=== PATIENT | female | born 1990 | race Caucasian/White ===

== ENCOUNTER 2020-11-23 00:03 | Emergency (ER) | payer OTHER ==
[~2020-11-23 00:03] MED LIST: BRINTELLIX20 MG PO; CLEOCIN300 MG PO; ENERGY PO; ONDANSETRON ODT4 MG SL; PERCOCET 5-3251 EACH PO; PERCOCET 7.5/321 TAB PO; REXULTI3 MG PO; TRAZODONE 100M100 MG PO; ZOFRAN4 MG PO
[2020-11-23 03:08] LABS: BASOPHIL 0.5 % (0-2); EOSINOPHIL 2.3 % (0-5); HCT 39.4 % (37.0-47.0); HGB 13.4 g/dl (12.5-16.0); MCH 30.2 pg (25.0-31.0); MCV 88.9 fL (78.0-100.0); MONOCYTE 6.7 % (0-12); MPV 9.7 fL (6.0-9.5); NRBC 0; PLT 242 K/uL (150-400); RBC 4.43 M/uL (4.20-5.40); WBC 10.1 K/uL (4.0-10.5)
[2020-11-23 03:19] LABS: BUN/CREAT RATIO (CALC) 10.3 RATIO; CREATININE 0.87 mg/dL (0.51-0.95); POTASSIUM 4.2 mmol/L (3.5-5.1)
[2020-11-23] MEDS ORDERED: ROBAXIN750 MG PO (05:50)
[2020-11-23] MEDS ORDERED: MEDROL 4MG DOSEP4 MG PO (05:50)
[2020-11-23] MEDS ORDERED: MOBIC7.5 MG PO (05:50)
== END 2020-11-23 06:27 | disposition home or self-care (01) ==
LOC: FER 00:03
PROVIDERS: Emergency Medicine Emergency Medical Services
DX: M54.12 Radiculopathy, cervical region (principal); J45.909 Unspecified asthma, uncomplicated; Z88.0 Allergy status to penicillin; Z88.1 Allergy status to other antibiotic agents
CPT/HCPCS: 36415; 72125; 80048; 85025; J1100; J1170; J1885; J2405; J3360

== ENCOUNTER 2020-12-02 13:54 | Emergency (ER) | payer OTHER ==
[~2020-12-02 13:54] MED LIST changes: +MEDROL 4MG DOSEP4 MG PO; +MOBIC7.5 MG PO; +ROBAXIN750 MG PO
[2020-12-02 17:03] LABS: BASOPHIL 0.5 % (0-2); EOSINOPHIL 1.5 % (0-5); HCT 43.8 % (37.0-47.0); HGB 14.9 g/dl (12.5-16.0); LYMPHOCYTE 42.7 % (15-48); MCH 30.1 pg (25.0-31.0); MCV 88.5 fL (78.0-100.0); MONOCYTE 6.7 % (0-12); MPV 9.6 fL (6.0-9.5); NEUTROPHIL 48.2 % (41-80); NRBC 0; PLT 284 K/uL (150-400); RBC 4.95 M/uL (4.20-5.40); RDW 12.2 % (11.5-14.0); WBC 10.4 K/uL (4.0-10.5)
[2020-12-02 17:33] LABS: BILIRUBIN - TOTAL 0.7 mg/dL (0.2-1.0); BUN/CREAT RATIO (CALC) 16.7 RATIO; CREATININE 0.96 mg/dL (0.51-0.95); GLOBULIN (CALCULATION) 3.5 g/dL; POTASSIUM 4.8 mmol/L (3.5-5.1); TOTAL PROTEIN 7.5 g/dL (6.4-8.2)
== END 2020-12-02 18:58 | disposition home or self-care (01) ==
LOC: FER 13:54
PROVIDERS: Nurse Practitioner Family
DX: I10 Essential (primary) hypertension (principal); Z88.0 Allergy status to penicillin; Z88.1 Allergy status to other antibiotic agents; Z88.8 Allergy status to other drugs, medicaments and biological substances
CPT/HCPCS: 36415; 71045; 80053; 84484; 85025; 93005; J7030